=== PATIENT | male | born 1960 | race Caucasian/White ===

== ENCOUNTER 2019-04-03 13:13 | Emergency (ER) | payer OTHER ==
[~2019-04-03] VITALS: Ht 182.9 cm; Wt 109.8 kg
[2019-04-03 14:17] LABS: PCO2 34.5 mmHg (35.0-45.0); pH 7.477 (7.340-7.450)
[2019-04-03 14:37] LABS: HEMATOCRIT 45.2 % (42.0-52.0); HEMOGLOBIN 15.5 gm/dL (14.0-18.0); MCH 29.6 pg (26.0-34.0); MCHC 34.2 g/dL (28.0-37.0); MCV 86.7 fL (80.0-100.0); MPV 8.3 fl. (7.2-11.1); NUCLEATED RBCS 0 /100WBC; PLATELET COUNT* 200 thou/uL (150-400); RBC 5.21 mil/uL (4.50-6.00); RDW-CV 14.2 % (10.5-14.5); WBC 11.9 thou/uL (4.0-11.0)
[2019-04-03 14:50] LABS: CALCIUM 9.5 mg/dL (8.5-10.1); CREATININE 1.5 mg/dL (0.6-1.3); POTASSIUM 3.3 mmol/L (3.5-5.1)
[2019-04-03 14:55] LABS: ALBUMIN 3.5 g/dL (3.4-5.0); MAGNESIUM 1.9 mg/dL (1.8-2.4); TOTAL BILIRUBIN 0.7 mg/dL (<0.1-1.0)
[2019-04-03 15:11] LABS: ABSOLUTE LYMPHOCYTES 0.7 thou/uL (0.8-5.3); ABSOLUTE MONOCYTES 0.8 thou/uL (0.0-1.2); ABSOLUTE NEUTROPHILS 10.4 thou/uL (1.6-8.1)
[2019-04-03 15:12] LABS: LARGE PLATELETS RARE; PLATELET ESTIMATE ADEQUATE
[2019-04-03 15:41] LABS: URINE BLOOD TRACE (Negative); URINE CLARITY CLEAR; URINE COLOR DARK YELLOW; URINE GLUCOSE-RANDOM TRACE (Negative); URINE KETONES TRACE (Negative); URINE LEUKOCYTES-REFLEX NEGATIVE (Negative); URINE NITRITE-REFLEX NEGATIVE (Negative); URINE PROTEIN 2+ (Negative); URINE SPECIFIC GRAVITY 1.025 (1.005-1.030)
[2019-04-03 15:46] LABS: ICTOTEST (BILI CONFIRMATORY) Negative (Negative); URINE BILIRUBIN 1+ (Negative)
[2019-04-03 15:56] LABS: AMORPHOUS URATES Few /LPF (None Seen); BACTERIA-REFLEX 1-9 Few /HPF (None Seen); FINE GRANULAR CASTS 0-3 Few /LPF (None Seen); MUCUS 0-3 Light strn/LPF (None Seen); SQUAMOUS 0-3 Few /LPF (0-3); URINE RBC 0-2 Rare /HPF (0-2); URINE WBC-REFLEX 0-5 Rare /HPF (0-5)
[2019-04-03] MEDS ORDERED: AZITHROMYCIN 2250 MG PO (16:27)
[2019-04-03] MEDS ORDERED: NORCO 5-325 TA1 EACH PO (16:27)
[2019-04-03] MEDS ORDERED: CYCLOBENZAPRINE5 MG PO (16:27)
[2019-04-03] MEDS ORDERED: HYDROCHLOROTHIA25 M2 PO (17:33)
[2019-04-03 17:55] VITALS: BP 161/92
== END 2019-04-03 17:55 | disposition home or self-care (01) ==
LOC: M.ERS 13:13
PROVIDERS: Personal Emergency Response Attendant
DX: M54.5 Low back pain (principal); J18.9 Pneumonia, unspecified organism

== ENCOUNTER 2021-09-01 08:35 | Emergency (ER) | payer OTHER ==
[~2021-09-01] VITALS: Ht 182.9 cm; Wt 102.1 kg
[~2021-09-01 08:35] MED LIST: AZITHROMYCIN 2250 MG PO; CYCLOBENZAPRINE5 MG PO; HYDROCHLOROTHIA25 M2 PO; NORCO 5-325 TA1 EACH PO
[2021-09-01] MEDS ORDERED: ASA81BEC PO (08:45)
[2021-09-01] MEDS ORDERED: NORVASC10 MG PO (08:45)
[2021-09-01 10:07] LABS: ABSOLUTE LYMPHOCYTES 0.5 thou/uL (0.8-5.3); ABSOLUTE MONOCYTES 0.3 thou/uL (0.0-1.2); ABSOLUTE NEUTROPHILS 2.5 thou/uL (1.6-8.1); BASOPHILS 0.4 %; HEMATOCRIT 46.8 % (42.0-52.0); HEMOGLOBIN 16.2 gm/dL (14.0-18.0); LYMPHOCYTES 15.8 %; MCH 30.1 pg (26.0-34.0); MCHC 34.5 g/dL (28.0-37.0); MCV 87.1 fL (80.0-100.0); MONOCYTES 9.9 %; MPV 7.9 fl. (7.2-11.1); NUCLEATED RBCS 0 /100WBC; PLATELET COUNT* 157 thou/uL (150-400); POLYS 73.9 %; RBC 5.38 mil/uL (4.50-6.00); RDW-CV 14.6 % (10.5-14.5); WBC 3.4 thou/uL (4.0-11.0)
[2021-09-01 10:19] LABS: CALCIUM 8.4 mg/dL (8.5-10.1); CREATININE 1.5 mg/dL (0.6-1.3); POTASSIUM 3.5 mmol/L (3.5-5.1)
[2021-09-01 10:24] LABS: ALBUMIN 4.1 g/dL (3.4-5.0); TOTAL BILIRUBIN 0.5 mg/dL (<0.1-1.0); TOTAL PROTEIN 7.8 g/dL (6.4-8.2)
--- NOTE | 2021-09-01 10:27 | EKG ---
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
[2021-09-01] MEDS ORDERED: DEXAMETHASONE 44 M1 PO (10:44)
[2021-09-01] MEDS ORDERED: ZPAK PO (10:44)
[2021-09-01 11:25] VITALS: BP 154/89
== END 2021-09-01 11:26 | disposition home or self-care (01) ==
LOC: M.ERS 08:35
PROVIDERS: Family Medicine
DX: U07.1 COVID-19 (principal); J12.82 Pneumonia due to coronavirus disease 2019; R11.0 Nausea; R19.7 Diarrhea, unspecified; R55 Syncope and collapse; Z79.899 Other long term (current) drug therapy; Z79.82 Long term (current) use of aspirin; Z88.8 Allergy status to other drugs, medicaments and biological substances; Z77.22 Contact with and (suspected) exposure to environmental tobacco smoke (acute) (chronic)

== ENCOUNTER 2021-09-05 11:08 | Emergency (ER) | payer OTHER ==
[~2021-09-05] VITALS: Ht 182.9 cm; Wt 104.3 kg
[~2021-09-05 11:08] MED LIST changes: +ASA81BEC PO; +DEXAMETHASONE 44 M1 PO; +NORVASC10 MG PO; +ZPAK PO
[2021-09-05 14:14] LABS: URINE BILIRUBIN NEGATIVE (Negative); URINE BLOOD NEGATIVE (Negative); URINE CLARITY CLEAR; URINE COLOR YELLOW; URINE GLUCOSE-RANDOM NEGATIVE (Negative); URINE KETONES NEGATIVE (Negative); URINE LEUKOCYTES-REFLEX NEGATIVE (Negative); URINE NITRITE-REFLEX NEGATIVE (Negative); URINE PROTEIN NEGATIVE (Negative); URINE UROBILINOGEN 0.2 E.U./dl (0.2-1.0)
[2021-09-05 14:21] LABS: ABSOLUTE LYMPHOCYTES 0.6 thou/uL (0.8-5.3); ABSOLUTE MONOCYTES 0.4 thou/uL (0.0-1.2); ABSOLUTE NEUTROPHILS 3.3 thou/uL (1.6-8.1); BASOPHILS 0.2 %; HEMATOCRIT 47.4 % (42.0-52.0); HEMOGLOBIN 16.4 gm/dL (14.0-18.0); LYMPHOCYTES 12.8 %; MCH 30.1 pg (26.0-34.0); MCHC 34.5 g/dL (28.0-37.0); MCV 87.2 fL (80.0-100.0); MONOCYTES 9.9 %; MPV 7.7 fl. (7.2-11.1); NUCLEATED RBCS 0 /100WBC; PLATELET COUNT* 162 thou/uL (150-400); POLYS 77.1 %; RBC 5.44 mil/uL (4.50-6.00); RDW-CV 14.9 % (10.5-14.5); WBC 4.3 thou/uL (4.0-11.0)
--- NOTE | 2021-09-05 14:33 | EKG ---
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: : 1960 Requested By: Gerard Costa Order Number: [id number] MD: Noel Rodriguez Measurements Intervals [place] Rate: 88 P: 56 [place]: 165 QRS: 63 QRSD: 96 T: 55 QT: 377 QTc: 457 Interpretive Statements Sinus rhythm Consider left atrial enlargement Baseline wander in lead(s) II Compared to ECG 09/01/2021 09:26:50 No significant changes Electronically Signed On 09-05-2021 14:33:33 CDT by Noel Rodriguez [email or web address] <ELECTRONICALLY SIGNED> By: Noel Rodriguez MD, FACC 09/05/21 1433 1356 1356 Noel Rodriguez MD, [facility] /EPI
[2021-09-05 14:53] LABS: ALBUMIN 3.7 g/dL (3.4-5.0); CALCIUM 8.5 mg/dL (8.5-10.1); CREATININE 1.3 mg/dL (0.6-1.3); POTASSIUM 4.2 mmol/L (3.5-5.1); TOTAL BILIRUBIN 0.5 mg/dL (<0.1-1.0); TOTAL PROTEIN 7.7 g/dL (6.4-8.2)
[2021-09-05] MEDS ORDERED: APAP W/CODEINE1 TA2 PO (15:27)
[2021-09-05 15:41] VITALS: BP 162/99
== END 2021-09-05 15:42 | disposition home or self-care (01) ==
LOC: M.ERS 11:08
PROVIDERS: Physician Assistant
DX: U07.1 COVID-19 (principal); R53.1 Weakness; Z79.82 Long term (current) use of aspirin; Z79.899 Other long term (current) drug therapy; Z88.6 Allergy status to analgesic agent

== ENCOUNTER 2021-09-09 23:05 | Emergency (ER) | payer OTHER ==
[~2021-09-09] VITALS: Ht 182.9 cm; Wt 95.3 kg
[~2021-09-09 23:05] MED LIST changes: +APAP W/CODEINE1 TA2 PO
[2021-09-09 23:37] LABS: ABSOLUTE BASOPHILS 0.1 thou/uL (0.0-0.2); ABSOLUTE EOSINOPHILS 0.1 thou/uL (0.0-0.7); ABSOLUTE LYMPHOCYTES 2.2 thou/uL (0.8-5.3); ABSOLUTE MONOCYTES 0.7 thou/uL (0.0-1.2); ABSOLUTE NEUTROPHILS 4.3 thou/uL (1.6-8.1); BASOPHILS 0.9 %; EOSINOPHILS 1.4 %; HEMATOCRIT 45.6 % (42.0-52.0); HEMOGLOBIN 15.7 gm/dL (14.0-18.0); LYMPHOCYTES 29.7 %; MCHC 34.4 g/dL (28.0-37.0); MCV 87.2 fL (80.0-100.0); MONOCYTES 10.1 %; MPV 7.2 fl. (7.2-11.1); NUCLEATED RBCS 0 /100WBC; PLATELET COUNT* 323 thou/uL (150-400); POLYS 57.9 %; RBC 5.23 mil/uL (4.50-6.00); RDW-CV 14.1 % (10.5-14.5); WBC 7.4 thou/uL (4.0-11.0)
[2021-09-09 23:52] LABS: CALCIUM 9.5 mg/dL (8.5-10.1); CREATININE 1.2 mg/dL (0.6-1.3); POTASSIUM 4.1 mmol/L (3.5-5.1)
[2021-09-09 23:57] LABS: ALBUMIN 3.6 g/dL (3.4-5.0); MAGNESIUM 2.1 mg/dL (1.8-2.4); TOTAL BILIRUBIN 0.5 mg/dL (<0.1-1.0); TOTAL PROTEIN 7.8 g/dL (6.4-8.2)
[2021-09-10 00:11] LABS: URINE BILIRUBIN NEGATIVE (Negative); URINE BLOOD NEGATIVE (Negative); URINE CLARITY CLEAR; URINE COLOR YELLOW; URINE GLUCOSE-RANDOM NEGATIVE (Negative); URINE KETONES NEGATIVE (Negative); URINE LEUKOCYTES-REFLEX NEGATIVE (Negative); URINE NITRITE-REFLEX NEGATIVE (Negative); URINE PROTEIN NEGATIVE (Negative); URINE SPECIFIC GRAVITY 1.025 (1.005-1.030); URINE UROBILINOGEN 0.2 E.U./dl (0.2-1.0)
[2021-09-10] MEDS ORDERED: PROAIR HFA8.5 GM INH (02:26)
[2021-09-10] MEDS ORDERED: ZOFRAN ODT4 MG PO (02:26)
[2021-09-10] MEDS ORDERED: HYDROCODON-ACE1 EAC8 PO (02:26)
[2021-09-10 02:33] VITALS: BP 138/79
--- NOTE | 2021-09-10 09:55 | EKG ---
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
== END 2021-09-10 02:33 | disposition home or self-care (01) ==
LOC: M.ERS 23:05
PROVIDERS: Emergency Medicine
DX: U07.1 COVID-19 (principal); R10.12 Left upper quadrant pain; R07.81 Pleurodynia; Z79.899 Other long term (current) drug therapy; Z79.82 Long term (current) use of aspirin; Z88.8 Allergy status to other drugs, medicaments and biological substances

== ENCOUNTER 2021-09-12 16:12 | Emergency (ER) | payer OTHER ==
[~2021-09-12] VITALS: Ht 182.9 cm; Wt 95.3 kg
[~2021-09-12 16:12] MED LIST changes: +HYDROCODON-ACE1 EAC8 PO; +PROAIR HFA8.5 GM INH; +ZOFRAN ODT4 MG PO
[2021-09-12 20:44] LABS: ABSOLUTE LYMPHOCYTES 1.7 thou/uL (0.8-5.3); ABSOLUTE MONOCYTES 0.5 thou/uL (0.0-1.2); ABSOLUTE NEUTROPHILS 5.4 thou/uL (1.6-8.1); BASOPHILS 0.5 %; EOSINOPHILS 0.2 %; HEMATOCRIT 43.1 % (42.0-52.0); HEMOGLOBIN 14.9 gm/dL (14.0-18.0); LYMPHOCYTES 22.5 %; MCHC 34.7 g/dL (28.0-37.0); MCV 86.3 fL (80.0-100.0); MONOCYTES 6.2 %; MPV 7.1 fl. (7.2-11.1); NUCLEATED RBCS 0 /100WBC; PLATELET COUNT* 352 thou/uL (150-400); POLYS 70.6 %; RBC 4.99 mil/uL (4.50-6.00); RDW-CV 14.4 % (10.5-14.5); WBC 7.7 thou/uL (4.0-11.0)
[2021-09-12 20:51] LABS: CREATININE 1.3 mg/dL (0.6-1.3); POTASSIUM 4.4 mmol/L (3.5-5.1)
[2021-09-12 20:56] LABS: ALBUMIN 3.7 g/dL (3.4-5.0); TOTAL BILIRUBIN 0.8 mg/dL (<0.1-1.0); TOTAL PROTEIN 7.6 g/dL (6.4-8.2)
[2021-09-12 21:22] LABS: URINE BILIRUBIN NEGATIVE (Negative); URINE BLOOD NEGATIVE (Negative); URINE CLARITY CLEAR; URINE COLOR YELLOW; URINE GLUCOSE-RANDOM NEGATIVE (Negative); URINE KETONES NEGATIVE (Negative); URINE LEUKOCYTES-REFLEX NEGATIVE (Negative); URINE NITRITE-REFLEX NEGATIVE (Negative); URINE PROTEIN NEGATIVE (Negative); URINE UROBILINOGEN 0.2 E.U./dl (0.2-1.0)
[2021-09-12] MEDS ORDERED: CITRATE OF MAG296 M1 PO (22:22)
[2021-09-12] MEDS ORDERED: ZOFRAN ODT4 MG PO (22:22)
[2021-09-12] MEDS ORDERED: DICYCLOMINE HCL20 MG PO (22:22)
[2021-09-13 02:28] VITALS: BP 164/91
--- NOTE | 2021-09-13 11:10 | EKG ---
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
== END 2021-09-13 02:31 | disposition home or self-care (01) ==
LOC: M.ERS 16:12
PROVIDERS: Personal Emergency Response Attendant; Physician Assistant
DX: U07.1 COVID-19 (principal); J12.82 Pneumonia due to coronavirus disease 2019; R53.1 Weakness; I10 Essential (primary) hypertension; Z79.82 Long term (current) use of aspirin; Z79.899 Other long term (current) drug therapy; Z88.6 Allergy status to analgesic agent